=== PATIENT | female | born 1995 | race African-American/Black ===

== ENCOUNTER 2025-03-12 21:04 | Emergency (ER) | payer BC ==
[2025-03-12] MEDS ORDERED: Dexamethasone 10 MG/ML VIAL ONE (21:37)
== END 2025-03-12 22:04 | disposition home or self-care (01) ==
LOC: NAV ERS 21:04
DX: J32.1 Chronic frontal sinusitis (principal); J32.0 Chronic maxillary sinusitis
CPT/HCPCS: 87081; 87426; 87430; 96372; 99283; J1100